=== PATIENT | female | born 1955 | race Caucasian/White ===

== ENCOUNTER 2017-08-07 01:35 | Emergency (ER) | payer OTHER ==
[~2017-08-07] VITALS: Ht 177.8 cm; Wt 67.4 kg
[~2017-08-07 01:35] MED LIST: OMEP20TA62 PO
[2017-08-07 01:36] VITALS: BP 103/63
[2017-08-07] MEDS ORDERED: LIDOCAINE-MPF 1%, 5ML ONE ×2 (01:43→02:23)
[2017-08-07] MEDS ORDERED: LIDOCAINE 1%, 10ML INFIL ONE (02:00)
[2017-08-07] MEDS ORDERED: DIPH,PERTUSS(ACELL),TET VAC/PF 0.5 ML IM-VACC ONE ×2 (02:03→02:30)
[2017-08-07] MEDS ORDERED: BACITRACIN ZINC OINT 500U/GM, 0.9 GM ONE (03:00)
== END 2017-08-07 03:14 | disposition home or self-care (01) ==
LOC: ED 02:33
DX: S01.112A Laceration without foreign body of left eyelid and periocular area, initial encounter (principal); W01.0XXA Fall on same level from slipping, tripping and stumbling without subsequent striking against object, initial encounter; Y93.89 Activity, other specified; Y99.8 Other external cause status; Y92.89 Other specified places as the place of occurrence of the external cause
CPT/HCPCS: 12054; 90471; 90715; 99284; J3490